=== PATIENT | female | born 1985 | race Caucasian/White ===

== ENCOUNTER 2016-12-02 16:00 | Emergency (ER) | payer MEDICAID ==
[~2016-12-02] VITALS: Ht 157.5 cm; Wt 71.1 kg
[~2016-12-02 16:00] MED LIST: CLON0.5T PO
[2016-12-02 16:02] VITALS: BP 120/82
[2016-12-02] MEDS ORDERED: CYCLOBENZAPRINE 10 MG TABLET PO ONE (16:30)
[2016-12-02] MEDS ORDERED: CYCLOBENZAPRINE 10 MG TABLET ONE (17:40)
== END 2016-12-02 19:50 | disposition home or self-care (01) ==
LOC: ED 19:45
DX: S16.1XXA Strain of muscle, fascia and tendon at neck level, initial encounter (principal); R51 Headache; R19.7 Diarrhea, unspecified; I10 Essential (primary) hypertension; G89.11 Acute pain due to trauma; V23.4XXA Motorcycle driver injured in collision with car, pick-up truck or van in traffic accident, initial encounter; Y93.55 Activity, bike riding; Y92.488 Other paved roadways as the place of occurrence of the external cause; Y99.8 Other external cause status
CPT/HCPCS: 70450; 99284

== ENCOUNTER 2017-01-24 09:34 | Emergency (ER) | payer MEDICAID ==
[~2017-01-24] VITALS: Ht 157.5 cm; Wt 69.0 kg
[2017-01-24] MEDS ORDERED: SODIUM CHLORIDE 0.9% 1,000ML IVBOLUS ONE (10:30)
[2017-01-24] MEDS ORDERED: SODIUM CHLORIDE FLUSH 10ML SYR IVF ONE (10:30)
[2017-01-24] MEDS ORDERED: ONDANSETRON 2MG/ML, 2ML IVPush ONE (10:30)
[2017-01-24] MEDS ORDERED: MORPHINE SULFATE 4 MG/ML, 1ML ONE ×2 (11:01→14:29)
[2017-01-24] MEDS ORDERED: ONDANSETRON 2MG/ML, 2ML ONE (11:02)
[2017-01-24 11:08] LABS: BLOOD UREA NITROGEN 15 mg/dL (7-18)
[2017-01-24] MEDS: MORPHINE SULFATE 4 MG/ML, 1ML IVPush PRN ×2 (11:15→14:35)
[2017-01-24 13:58] VITALS: BP 110/76
== END 2017-01-24 15:52 | disposition home or self-care (01) ==
LOC: ED 13:54
DX: N83.201 Unspecified ovarian cyst, right side (principal); R10.31 Right lower quadrant pain; I10 Essential (primary) hypertension; Z88.0 Allergy status to penicillin; Z90.49 Acquired absence of other specified parts of digestive tract; Z91.040 Latex allergy status; Z88.6 Allergy status to analgesic agent; Z88.8 Allergy status to other drugs, medicaments and biological substances; Z91.041 Radiographic dye allergy status
CPT/HCPCS: 36415; 74176; 80048; 81001; 82040; 84703; 85025; 87086; 87324; 89055; 96361; 96374; 96375; 96376; 99285; J2405; J7030

== ENCOUNTER 2017-02-22 19:49 | Emergency (ER) | payer MEDICAID ==
[~2017-02-22] VITALS: Ht 157.5 cm; Wt 69.1 kg
[2017-02-22 19:50] VITALS: BP 126/86
== END 2017-02-22 21:00 | disposition home or self-care (01) ==
LOC: ED 20:30
DX: J01.00 Acute maxillary sinusitis, unspecified (principal); Z88.5 Allergy status to narcotic agent; Z91.040 Latex allergy status; Z91.041 Radiographic dye allergy status
CPT/HCPCS: 99283

== ENCOUNTER 2017-03-07 01:35 | Emergency (ER) | payer MEDICAID ==
[~2017-03-07] VITALS: Ht 162.6 cm; Wt 71.8 kg
[2017-03-07] MEDS ORDERED: ALBU8.5H3 INH (02:05)
[2017-03-07] MEDS ORDERED: SERT50TA PO (02:05)
[2017-03-07] MEDS ORDERED: PREN1TAB60 PO (02:05)
[2017-03-07] MEDS ORDERED: SERT25TA PO (02:05)
[2017-03-07 03:18] VITALS: BP 120/78
== END 2017-03-07 03:21 | disposition home or self-care (01) ==
LOC: ED 02:25
DX: R09.1 Pleurisy (principal); J45.909 Unspecified asthma, uncomplicated; Z87.891 Personal history of nicotine dependence
CPT/HCPCS: 71020; 93005; 99284

== ENCOUNTER 2017-05-22 15:26 | Emergency (ER) | payer MEDICAID ==
[~2017-05-22] VITALS: Ht 157.5 cm; Wt 73.0 kg
[~2017-05-22 15:26] MED LIST changes: +ALBU8.5H8 INH; +PREN1TAB60 PO; +SERT25TA PO; +SERT50TA PO
[2017-05-22] MEDS ORDERED: SODIUM CHLORIDE 0.9% 1,000 ML IV ONE (15:51)
[2017-05-22] MEDS ORDERED: SODIUM CHLORIDE 0.9% 1,000ML IVBOLUS ONE (16:00)
[2017-05-22 16:16] LABS: HEMATOCRIT 41.8 % (34.6-47.8); HEMOGLOBIN 14.3 g/dL (11.7-16.4); WHITE BLOOD COUNT 5.1 x10^3/uL (3.4-10)
[2017-05-22 16:26] LABS: BLOOD UREA NITROGEN 11 mg/dL (7-18)
[2017-05-22 16:34] LABS: ASPARTATE AMINO TRANSFERASE 16 U/L (15-37)
[2017-05-22 17:11] LABS: PATH.CAST-FLAG NOT PRESENT; SPERM-FLAG NOT PRESENT; SRC-FLAG NOT PRESENT; XTAL-FLAG NOT PRESENT; YLC-FLAG NOT PRESENT
[2017-05-22 17:32] VITALS: BP 108/69
== END 2017-05-22 17:35 | disposition home or self-care (01) ==
LOC: ED 17:31
DX: N83.202 Unspecified ovarian cyst, left side (principal); F17.200 Nicotine dependence, unspecified, uncomplicated; I10 Essential (primary) hypertension; Z90.49 Acquired absence of other specified parts of digestive tract
CPT/HCPCS: 36415; 80053; 81001; 83690; 84703; 85025; 87086; 96360; 99284; J7030

== ENCOUNTER 2018-10-14 19:49 | Emergency (ER) | payer MEDICAID ==
[~2018-10-14] VITALS: Ht 157.5 cm; Wt 76.9 kg
[2018-10-14 20:43] LABS: BASOPHILS # (AUTO) 0.03 x10^3/uL (0-0.1); BASOPHILS % (AUTO) 0 % (0-1); EOSINOPHILS # (AUTO) 0.03 x10^3/uL (0-0.4); EOSINOPHILS % (AUTO) 1 % (1-7); LYMPHOCYTES # (AUTO) 1.47 x10^3/uL (1-3.4); LYMPHOCYTES % (AUTO) 23 % (22-44); MD NO; MEAN CORPUSCULAR HEMOGLOBIN 28.1 pg (27.0-34.8); MEAN CORPUSCULAR HGB CONC 33.9 g/dL (32.4-35.8); MEAN CORPUSCULAR VOLUME 82.8 fL (80-100); MEAN PLATELET VOLUME 10.9 fL (7.4-10.4); MONOCYTES # (AUTO) 0.35 x10^3/uL (0.2-0.8); MONOCYTES % (AUTO) 6 % (2-9); NEUTROPHILS # (AUTO) 4.42 x10^3/uL (1.8-6.8); NEUTROPHILS % (AUTO) 70 % (42-75); PLATELET COUNT 156 x10^3/uL (130-400); RED BLOOD COUNT 4.88 x10^6/uL (3.82-5.3); RED CELL DISTRIBUTION WIDTH 13.8 % (9.6-15.2)
[2018-10-14 20:54] LABS: ALANINE AMINOTRANSFERASE 21 U/L (12-78); ALBUMIN 3.6 g/dL (3.4-5.0); ANION GAP 4 mmol/L (5-15); CALCIUM 8.5 mg/dL (8.5-10.1); CHLORIDE 111 mmol/L (98-107); CREATININE 0.86 mg/dL (0.55-1.02)
[2018-10-14 20:59] LABS: ALKALINE PHOSPHATASE 68 U/L (45-117); BILIRUBIN,TOTAL 0.3 mg/dL (0.2-1.0); TOTAL PROTEIN 7.2 g/dL (6.4-8.2)
[2018-10-14 21:25] LABS: MICROSCOPIC AUTO
[2018-10-14 21:30] LABS: CULTURE INDICATED? YES
[2018-10-14 22:19] LABS: CLOSTRIDIUM DIFFICILE ANTIGEN NEGATIVE; CLOSTRIDIUM DIFFICILE TOXIN NEGATIVE (Negative)
[2018-10-14 23:18] VITALS: BP 121/76
== END 2018-10-14 23:28 | disposition home or self-care (01) ==
LOC: ED 23:21
DX: R19.7 Diarrhea, unspecified (principal); R10.13 Epigastric pain; R10.12 Left upper quadrant pain; R10.32 Left lower quadrant pain; F32.9 Major depressive disorder, single episode, unspecified; I10 Essential (primary) hypertension; Z90.89 Acquired absence of other organs; Z90.49 Acquired absence of other specified parts of digestive tract
CPT/HCPCS: 36415; 74021; 80053; 81001; 83690; 84703; 85025; 87086; 87324; 99284

== ENCOUNTER 2018-11-09 04:09 | Emergency (ER) | payer MEDICAID ==
[~2018-11-09] VITALS: Ht 157.5 cm; Wt 76.6 kg
--- NOTE | 2018-11-09 05:10 | NUR ---
PT HERE FOR ABD THAT HAS BEEN GOING ON SINCE MAY. PT SEEN AT [facility] [address] [facility] AND RECORDS REQUESTING. VSS. PT IN NAD. CALL LIGHT IN REACH
[2018-11-09 05:40] VITALS: BP 111/72
--- NOTE | 2018-11-09 06:07 | NUR ---
Patient given discharge instructions and they have confirmed that they understand the instructions. Patient ambulatory with steady gait.
== END 2018-11-09 06:09 | disposition home or self-care (01) ==
LOC: ED 06:00
DX: G89.29 Other chronic pain (principal); R10.33 Periumbilical pain; R19.7 Diarrhea, unspecified; I10 Essential (primary) hypertension
CPT/HCPCS: 99283

== ENCOUNTER 2019-01-14 02:11 | Emergency (ER) | payer MEDICAID ==
[~2019-01-14] VITALS: Ht 157.5 cm; Wt 75.0 kg
--- NOTE | 2019-01-14 02:35 | NUR ---
PT. TO X-RAY VIA [employer].
[2019-01-14 02:49] LABS: BASOPHILS # (AUTO) 0.02 x10^3/uL (0-0.1); BASOPHILS % (AUTO) 0 % (0-1); EOSINOPHILS # (AUTO) 0.06 x10^3/uL (0-0.4); EOSINOPHILS % (AUTO) 1 % (1-7); LYMPHOCYTES # (AUTO) 2.12 x10^3/uL (1-3.4); LYMPHOCYTES % (AUTO) 31 % (22-44); MD NO; MEAN CORPUSCULAR HEMOGLOBIN 26.9 pg (27.0-34.8); MEAN CORPUSCULAR HGB CONC 32.7 g/dL (32.4-35.8); MEAN CORPUSCULAR VOLUME 82.1 fL (80-100); MEAN PLATELET VOLUME 10.3 fL (7.4-10.4); MONOCYTES # (AUTO) 0.55 x10^3/uL (0.2-0.8); MONOCYTES % (AUTO) 8 % (2-9); NEUTROPHILS # (AUTO) 4.11 x10^3/uL (1.8-6.8); NEUTROPHILS % (AUTO) 60 % (42-75); PLATELET COUNT 171 x10^3/uL (130-400); RED BLOOD COUNT 4.73 x10^6/uL (3.82-5.3); RED CELL DISTRIBUTION WIDTH 14.5 % (9.6-15.2)
--- NOTE | 2019-01-14 02:58 | NUR ---
PT. TO ED WITH C/O LEFT CP X 3 DAYS. REPORTS GOT WORSE TONIGHT AND RADIATES DOWN LEFT ARM. NO HX OF SAME. EKG WAS DONE IN TRIAGE AND PRESENTED TO ERMD. PT. IS ON CONTINUOUS PULSE OX, B/P, AND HEART MONITORS. FAMILY AT FOR SUPPORT. CALL LIGHT IN REACH. ALL SAFETY MEASURES OBSERVED.
[2019-01-14 02:59] LABS: ALANINE AMINOTRANSFERASE 30 U/L (12-78); ALBUMIN 3.9 g/dL (3.4-5.0); ANION GAP 7 mmol/L (5-15); CALCIUM 8.9 mg/dL (8.5-10.1); CHLORIDE 104 mmol/L (98-107); CREATININE 0.92 mg/dL (0.55-1.02)
[2019-01-14 03:04] LABS: ALKALINE PHOSPHATASE 68 U/L (45-117); BILIRUBIN,TOTAL 0.3 mg/dL (0.2-1.0); TOTAL PROTEIN 7.4 g/dL (6.4-8.2); TROPONIN I < 0.015 ng/mL (0.000-0.045)
[2019-01-14] MEDS ORDERED: POTASSIUM CHLORIDE 20 MEQ TAB.ER.PRT ONE (03:16)
[2019-01-14] MEDS ORDERED: POTASSIUM CHLORIDE 20 MEQ TAB.ER.PRT PO ONE (03:30)
[2019-01-14 03:36] VITALS: BP 104/67
== END 2019-01-14 03:37 | disposition home or self-care (01) ==
LOC: ED 02:43
DX: R07.2 Precordial pain (principal); E87.6 Hypokalemia; I10 Essential (primary) hypertension; F17.210 Nicotine dependence, cigarettes, uncomplicated; Z90.49 Acquired absence of other specified parts of digestive tract; Z91.040 Latex allergy status; Z88.5 Allergy status to narcotic agent
CPT/HCPCS: 36415; 71046; 80053; 84484; 84703; 85025; 93005; 99284; 99406

== ENCOUNTER 2019-02-28 15:46 | Emergency (ER) | payer MEDICAID ==
[~2019-02-28] VITALS: Ht 157.5 cm; Wt 75.5 kg
[2019-02-28 17:10] VITALS: BP 118/83
== END 2019-02-28 17:38 | disposition home or self-care (01) ==
LOC: ED 17:32
DX: K59.00 Constipation, unspecified (principal); I10 Essential (primary) hypertension
CPT/HCPCS: 36415; 74021; 80053; 81001; 83690; 84703; 85025; 87086; 99284; Q0162